=== PATIENT | male | born 1985 | race Caucasian/White ===

== ENCOUNTER 2025-09-18 08:41 | Day surgery (SDC) | payer OTHER ==
[~2025-09-18 08:41] MED LIST: Dexamethasone 4 MG/ML SDV ONE; Glycopyrrolate 0.2 MG/ML 5 ML MDV ONE; Ondansetron 4 MG/2 ML SDV ONE; Propofol 200 MG/20 ML SDV ONE; Succinylcholine 200 MG/10 ML MDV ONE; fentaNYL 250 MCG/5 ML SDV ONE
[2025-09-18] MEDS: Lactated Ringers 1,000 ML IV SCH (09:34)
[2025-09-18 09:40] LABS: PLATELET COUNT,PLT 150.0 K/uL (130-375); RED BLOOD CELL COUNT 5.22 M/uL (4.14-5.76); WHITE BLOOD CELL COUNT,WBC 4.9 K/uL (3.2-11.0)
[2025-09-18 09:56] LABS: BLOOD UREA NITROGEN,BUN 21.0 mg/dL (7-18); CARBON DIOXIDE,CO2 30.0 mmol/L (21-32); CHLORIDE,CL 103.0 mmol/L (100-108); CREATININE 1.1 mg/dL (0.8-1.3); EST CRCL DRUG DOSING (CG) 101.89 mL/min; ESTIMATED GFR 88.0 mL/min (>60); GLUCOSE RANDOM 125.0 mg/dL (74-106); POTASSIUM,K 4.3 mmol/L (3.6-5.2); SODIUM,NA 140.0 mmol/L (140-148)
[2025-09-18] MEDS ORDERED: Ketorolac 30 MG/ML SDV ONE (11:06)
[2025-09-18] MEDS: metroNIDAZOLE/Normal Saline 500 MG in Premix Bag 1 BAG IV ONE (11:10)
[2025-09-18] MEDS ORDERED: fentaNYL 250 MCG/5 ML SDV ONE (11:13)
[2025-09-18] MEDS: Acetaminophen/HYDROcodone 325-5 MG Tab PO PRN (13:09)
== END 2025-09-18 14:50 | disposition home or self-care (01) ==
LOC: JP.SDS 08:41
PROVIDERS: ATTEND Surgery
DX: K43.6 Other and unspecified ventral hernia with obstruction, without gangrene (principal); Z91.030 Bee allergy status; Z87.891 Personal history of nicotine dependence
CPT/HCPCS: 00790; 36415; 49592; 80048; 85027; A9270; C1781; J0169; J0330; J0665; J0690; J1100; J1596; J1836; J1885; J2405; J2704; J2710; J2795; J3010; J7120; J3490